=== PATIENT | female | born 1975 | race Caucasian/White ===

== ENCOUNTER 2020-06-02 12:46 | Outpatient (REF) | payer OTHER, SELFPAY | END 2020-06-02 12:47 | disposition home or self-care (01) | LOC: HO.HMGCLDS 12:46 | PROVIDERS: PCP Internal Medicine; Visit Provider Internal Medicine | DX: Z20.828 Contact with and (suspected) exposure to other viral communicable diseases (principal) | CPT/HCPCS: 87635 ==

== ENCOUNTER 2020-09-21 12:35 | Outpatient (REF) | payer OTHER, SELFPAY | END 2020-09-21 12:36 | disposition home or self-care (01) | LOC: HO.LAB 12:35 | PROVIDERS: Visit Provider Nurse Practitioner Family | DX: J06.9 Acute upper respiratory infection, unspecified (principal); Z20.822 Contact with and (suspected) exposure to COVID-19 | CPT/HCPCS: 36415; U0003; U0005 ==